=== PATIENT | male | born 1945 | race Caucasian/White ===

== ENCOUNTER → 2022-02-09 10:42 | Outpatient (BNVA) | payer MEDICARE, OTHER, SELFPAY | PROVIDERS: PCP Family Medicine; Visit Provider Internal Medicine Cardiovascular Disease | DX: I63.9 Cerebral infarction, unspecified (principal); I49.1 Atrial premature depolarization; I49.3 Ventricular premature depolarization | CPT/HCPCS: 93246 ==

== ENCOUNTER 2023-08-16 13:48 | Outpatient (CLI) | payer MEDICARE, OTHER, SELFPAY ==
--- NOTE | 2023-08-16 13:56 | XRR_ITS ---
PROCEDURE INFORMATION: Exam: XR Left Shoulder Exam date and time: 08/16/2023 2:00 PM Age: 77 years old Clinical indication: Pain; Shoulder; Left; Additional info: Pain in left shoulder TECHNIQUE: Imaging protocol: Radiologic exam of the left shoulder. Views: 2 or more views. COMPARISON: No relevant prior studies available. FINDINGS: Bones/joints: No acute fracture or dislocation. Advanced glenohumeral joint greater than acromioclavicular joint degenerative change. Narrowed acromial humeral interval with remodeling of the inferior acromion and opposing humeral head in keeping with chronic supraspinatus tendon tear. Degenerative changes along the spine. Soft tissues: Unremarkable. XR/XR shoulder LT min 2V* [id number] IMPRESSION: 1. No acute fracture or dislocation. 2. Advanced left shoulder osteoarthritis and evidence of chronic supraspinatus tendon tear.
== END 2023-08-16 13:49 | disposition home or self-care (01) ==
LOC: RAD 13:50
PROVIDERS: PCP Family Medicine; Visit Provider Family Medicine
DX: M19.012 Primary osteoarthritis, left shoulder (principal); M25.512 Pain in left shoulder
CPT/HCPCS: 73030

== ENCOUNTER → 2023-10-20 15:15 | Outpatient (BNVA) | payer MEDICARE, SELFPAY | PROVIDERS: PCP Family Medicine; Referring Provider Family Medicine; Visit Provider Specialist | DX: M19.012 Primary osteoarthritis, left shoulder | CPT/HCPCS: 73030; 99204 ==